=== PATIENT | female | born 1980 | race Caucasian/White ===

== ENCOUNTER 2017-02-04 12:10 | Emergency (ER) | payer OTHER ==
[2017-02-04 12:31] VITALS: BP 122/61; PULSE 95; RESP 18; TEMP 99
--- NOTE | 2017-02-04 12:43 | ED ---
General Adult HPI - General Chief complaint: ENT Stated complaint: Sore Throat Time Seen by Provider: 02/04/17 12:32 Source: patient, RN notes reviewed Mode of arrival: ambulatory Limitations: no limitations - History of Present Illness Initial comments: patient's a 36-year-old female who presents emergency room today with a chief complaint of sore throat 3 days. She does admit to positive exudate. Admits to congestion and headache. Patient denies any recent shortness of breath, chest pain, back pain, abdominal pain, nausea or vomiting, numbness or tingling , headaches or visual changes, or any other complaints. - Related Data Home Medications Medication Instructions Recorded Confirmed Enoxaparin [Lovenox] 40 mg SQ DAILY 02/12/15 04/30/15 Sertraline [Zoloft] 50 mg PO DAILY 02/12/15 04/30/15 Ferrous Sulfate [Feosol] 325 mg PO DAILY 04/30/15 04/30/15 Previous Rx's Medication Instructions Recorded Pnv,Calcium 72/Iron/Folic Acid 1 each PO DAILY #30 tablet 10/29/14 [ Plus Tablet] Azithromycin [Zithromax Z-pack] 0 mg PO DIRECTED #6 tab 05/01/15 Azithromycin [Zithromax Z-pack] 0 mg PO DIRECTED #6 tab 02/04/17 Ibuprofen [Motrin] 600 mg PO Q6HR PRN #30 day 02/04/17 Allergies Allergy/AdvReac Type Severity Reaction Status Date / Time Penicillins Allergy Nausea & Verified 02/04/17 12:31 Vomiting & Diarrhea cephalexin monohydrate AdvReac Nausea & Verified 02/04/17 12:31 [From Keflex] Vomiting Review of Systems ROS Statement: Those systems with pertinent positive or pertinent negative responses have been documented in the HPI. ROS Other: All systems not noted in ROS Statement are negative. Past Medical History Past Medical History: CVA/TIA, Myocardial Infarction ([place]) Additional Past Medical History / Comment(s): pt states silent mi at 27 years History of Any Multi-Drug Resistant Organisms: None Reported Past Surgical History: No Surgical Hx Reported Additional Past Surgical History / Comment(s): LEEP procedure Past Psychological History: No Psychological Hx Reported, Anxiety, Bipolar, Depression Smoking Status: Current every day smoker Past Alcohol Use History: None Reported Past Drug Use History: None Reported General Exam - General Exam Comments Initial Comments: General: The patient is awake and alert, in no distress, and does not appear acutely ill. Eye: Pupils are equal, round and reactive to light, extra-ocular movements are intact. No nystagmus. There is normal conjunctiva bilaterally. No signs of icterus. Ears, nose, mouth and throat: There are moist mucous membranes and no oral lesions. tonsils 2+. Positive exudate. Uvula midline. Patient swallows without any difficulty. Neck: The neck is supple, there is no tenderness or JVD. Cardiovascular: There is a regular rate and rhythm. No murmur, rub or gallop is appreciated. Respiratory: Lungs are clear to auscultation, respirations are non-labored, breath sounds are equal. No wheezes, stridor, rales, or rhonchi. Musculoskeletal: Normal ROM, no tenderness. Strength 5/5. Sensation intact. Pulses equal bilaterally 2+. Neurological: A&O x 3. CN II-XII intact, There are no obvious motor or sensory deficits. Coordination appears grossly intact. Speech is normal. Skin: Skin is warm and dry and no rashes or lesions are noted. Psychiatric: Cooperative, appropriate mood & affect, normal judgment. Limitations: no limitations Course Vital Signs 02/04/17 12:28 Temperature 99.0 F Pulse Rate 95 Respiratory 18 Rate Blood Pressure 122/61 O2 Sat by Pulse 99 Oximetry Medical Decision Making - Medical Decision Making patient was given antibiotics azithromycin due to penicillin ALLERGY. Patient will be given a prescription for ibuprofen rashes present for pain. Disposition Clinical Impression: Acute pharyngitis Disposition: HOME SELF-CARE Condition: Good Instructions: Strep Throat (ED) Additional Instructions: Please use medication as discussed. Please follow-up with family doctor in the next 2 days of symptoms have not improved. Please return to emergency room if the symptoms increase or worsen or for any other concerns. Prescriptions: Azithromycin [Zithromax Z-pack] 0 mg PO DIRECTED #6 tab Ibuprofen [Motrin] 600 mg PO Q6HR PRN #30 day PRN Reason: Pain Referrals: None,Stated [Primary Care Provider] - 1-2 days Time of Disposition: 12:43
== END 2017-02-04 13:00 | disposition home or self-care (01) ==
LOC: EC 12:10
DX: J02.9 Acute pharyngitis, unspecified (principal); F17.200 Nicotine dependence, unspecified, uncomplicated; Z86.73 Personal history of transient ischemic attack (TIA), and cerebral infarction without residual deficits; Z88.0 Allergy status to penicillin; Z88.1 Allergy status to other antibiotic agents; Z79.899 Other long term (current) drug therapy
CPT/HCPCS: 99282

== ENCOUNTER 2017-06-12 16:58 | Emergency (ER) | payer OTHER ==
[2017-06-12 17:26] VITALS: BP 127/79; PULSE 80; RESP 18; TEMP 98.5
--- NOTE | 2017-06-12 18:03 | ED ---
Abdominal Pain HPI - General Chief Complaint: Abdominal Pain Stated Complaint: 13 wks preg-spotting Time Seen by Provider: 06/12/17 17:39 Source: patient, RN notes reviewed Mode of arrival: ambulatory Limitations: no limitations - History of Present Illness Initial Comments: this a 36-year-old female presents emergency Department chief complaint abdominal pain. Patient states that she dislodged that she is . Patient states that she noticed some spotting last few dayscramping today. Patient is she 11 . 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 Patient states that she's had 2 miscarriages 2 stillbirths. Patient is not sure how far along she has she states that she has irregular periods and she was told by her significant other that he had a vasectomy. Patient denies any nausea vomiting diarrhea constipation no fevers no chills. Denies any vaginal discharge. - Related Data Previous Rx's Medication Instructions Recorded Doxycycline Monohydrate [Monodox] 100 mg PO Q12HR #14 cap 06/12/17 Allergies Allergy/AdvReac Type Severity Reaction Status Date / Time Penicillins Allergy Nausea & Verified 06/12/17 18:05 Vomiting & Diarrhea cephalexin monohydrate AdvReac Nausea & Verified 06/12/17 18:05 [From Keflex] Vomiting Review of Systems ROS Statement: Those systems with pertinent positive or pertinent negative responses have been documented in the HPI. ROS Other: All systems not noted in ROS Statement are negative. Past Medical History Past Medical History: CVA/TIA, Myocardial Infarction ([place]) Additional Past Medical History / Comment(s): pt states silent mi at 27 years History of Any Multi-Drug Resistant Organisms: None Reported Past Surgical History: No Surgical Hx Reported Additional Past Surgical History / Comment(s): LEEP procedure Past Psychological History: Anxiety, Bipolar, Depression Smoking Status: Current every day smoker Past Alcohol Use History: None Reported Past Drug Use History: None Reported General Exam Limitations: no limitations General appearance: alert, in no apparent distress Head exam: Present: atraumatic, normocephalic, normal inspection Respiratory exam: Present: normal lung sounds bilaterally. Absent: respiratory distress, wheezes, rales, rhonchi, stridor Cardiovascular Exam: Present: regular rate, normal rhythm, normal heart sounds. Absent: systolic murmur, diastolic murmur, rubs, gallop, clicks GI/Abdominal exam: Present: soft, normal bowel sounds. Absent: distended, tenderness, guarding, rebound, rigid Back exam: Absent: CVA tenderness (R), CVA tenderness (L) Skin exam: Present: warm, dry, intact, normal color. Absent: rash Course Vital Signs 06/12/17 17:23 Temperature 98.5 F Pulse Rate 80 Respiratory 18 Rate Blood Pressure 127/79 O2 Sat by Pulse 98 Oximetry Medical Decision Making - Medical Decision Making 36-year-old female presents emergency Department for abdominal cramping spotting early . Patient's ultrasound shows viable IUP 10 weeks. Patient andi positive blood type does not require broke him. Patient treated for urinary tract infection. 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 - Lab Data Result diagrams: 06/12/17 18:08 06/12/17 18:08 Lab Results 06/12/17 06/12/17 06/12/17 Range/Units 18:08 18:08 18:08 WBC 15.3 H (3.8-10.6) k/uL RBC 4.33 (3.80-5.40) m/uL Hgb 13.5 (11.4-16.0) gm/dL Hct 38.7 (34.0-46.0) % MCV 89.6 (80.0-100.0) fL MCH 31.2 (25.0-35.0) pg MCHC 34.8 (31.0-37.0) g/dL RDW 13.0 (11.5-15.5) % Plt Count 320 (150-450) k/uL Neutrophils % 68 % Lymphocytes % 25 % Monocytes % 4 % Eosinophils % 1 % Basophils % 0 % Neutrophils # 10.4 H (1.3-7.7) k/uL Lymphocytes # 3.8 (1.0-4.8) k/uL Monocytes # 0.6 (0-1.0) k/uL Eosinophils # 0.1 (0-0.7) k/uL Basophils # 0.0 (0-0.2) k/uL Sodium 139 (137-145) mmol/L Potassium 3.8 (3.5-5.1) mmol/L Chloride 102 (98-107) mmol/L Carbon Dioxide 25 (22-30) mmol/L Anion Gap 12 mmol/L BUN 6 L (7-17) mg/dL Creatinine 0.47 L (0.52-1.04) mg/dL Est GFR (CKD-EPI)AfAm >90 (>60 ml/min/1.73 sqM) Est GFR (CKD-EPI)NonAf >90 (>60 ml/min/1.73 sqM) Glucose 81 (74-99) mg/dL Calcium 9.5 (8.4-10.2) mg/dL Total Bilirubin 0.2 (0.2-1.3) mg/dL AST 14 (14-36) U/L ALT 16 (9-52) U/L Alkaline Phosphatase 49 (38-126) U/L Total Protein 6.9 (6.3-8.2) g/dL Albumin 4.1 (3.5-5.0) g/dL Urine Color Colorless Urine Appearance Cloudy H (Clear) Urine pH 6.5 (5.0-8.0) Ur Specific [place] 1.004 (1.001-1.035) Urine Protein Negative (Negative) Urine Glucose (UA) Negative (Negative) Urine Ketones Negative (Negative) Urine Blood Negative (Negative) Urine Nitrite Negative (Negative) Urine Bilirubin Negative (Negative) Urine Urobilinogen <2.0 (<2.0) mg/dL Ur Leukocyte Esterase Moderate H (Negative) Urine RBC 4 (0-5) /hpf Urine WBC 18 H (0-5) /hpf Ur Squamous Epith Cells 6 H (0-4) /hpf Urine Bacteria Rare H (None) /hpf Urine Mucus Rare H (None) /hpf Urine Sperm Rare (None) /hpf Blood Type Blood Type Recheck 06/12/17 Range/Units 18:08 WBC (3.8-10.6) k/uL RBC (3.80-5.40) m/uL Hgb (11.4-16.0) gm/dL Hct (34.0-46.0) % MCV (80.0-100.0) fL MCH (25.0-35.0) pg MCHC (31.0-37.0) g/dL RDW (11.5-15.5) % Plt Count (150-450) k/uL Neutrophils % % Lymphocytes % % Monocytes % % Eosinophils % % Basophils % % Neutrophils # (1.3-7.7) k/uL Lymphocytes # (1.0-4.8) k/uL Monocytes # (0-1.0) k/uL Eosinophils # (0-0.7) k/uL Basophils # (0-0.2) k/uL Sodium (137-145) mmol/L Potassium (3.5-5.1) mmol/L Chloride (98-107) mmol/L Carbon Dioxide (22-30) mmol/L Anion Gap mmol/L BUN (7-17) mg/dL Creatinine (0.52-1.04) mg/dL Est GFR (CKD-EPI)AfAm (>60 ml/min/1.73 sqM) Est GFR (CKD-EPI)NonAf (>60 ml/min/1.73 sqM) Glucose (74-99) mg/dL Calcium (8.4-10.2) mg/dL Total Bilirubin (0.2-1.3) mg/dL AST (14-36) U/L ALT (9-52) U/L Alkaline Phosphatase (38-126) U/L Total Protein (6.3-8.2) g/dL Albumin (3.5-5.0) g/dL Urine Color Urine Appearance (Clear) Urine pH (5.0-8.0) Ur Specific [place] (1.001-1.035) Urine Protein (Negative) Urine Glucose (UA) (Negative) Urine Ketones (Negative) Urine Blood (Negative) Urine Nitrite (Negative) Urine Bilirubin (Negative) Urine Urobilinogen (<2.0) mg/dL Ur Leukocyte Esterase (Negative) Urine RBC (0-5) /hpf Urine WBC (0-5) /hpf Ur Squamous Epith Cells (0-4) /hpf Urine Bacteria (None) /hpf Urine Mucus (None) /hpf Urine Sperm (None) /hpf Blood Type A Positive Blood Type Recheck No Disposition Clinical Impression: Abdominal pain in , UTI (urinary tract infection) Disposition: HOME SELF-CARE Condition: Stable Additional Instructions: Please return to the Emergency Department if symptoms worsen or any other concerns. Prescriptions: Doxycycline Monohydrate [Monodox] 100 mg PO Q12HR #14 cap Referrals: None,Stated [Primary Care Provider] - 1-2 days Rosa Olivo MD [REFERRING] - 1-2 days Time of Disposition: 19:05
[2017-06-12 18:21] LABS: Basophils % (A) 0 %; Eosinophils # (A) 0.1 k/uL (0-0.7); Eosinophils % (A) 1 %; HCT 38.7 % (34.0-46.0); HGB 13.5 gm/dL (11.4-16.0); Lymphocytes # (A) 3.8 k/uL (1.0-4.8); Lymphocytes % (A) 25 %; MCH 31.2 pg (25.0-35.0); MCHC 34.8 g/dL (31.0-37.0); MCV 89.6 fL (80.0-100.0); Mean Platelet Volume 6.4; Monocytes # (A) 0.6 k/uL (0-1.0); Monocytes % (A) 4 %; Neutrophils # (A) 10.4 k/uL (1.3-7.7); Neutrophils % (A) 68 %; Platelet Count 320 k/uL (150-450); RBC 4.33 m/uL (3.80-5.40); WBC 15.3 k/uL (3.8-10.6)
[2017-06-12 18:22] LABS: Appearance,Urine Cloudy (Clear); Bacteria,Urine Rare /hpf; Bilirubin,Urine Negative (Negative); Blood,Urine Negative (Negative); Color,Urine Colorless; Glucose,Urine (UA) Negative (Negative); Ketones,Urine Negative (Negative); Leukocyte Esterase,Urine Moderate (Negative); Mucus,Urine Rare /hpf; Nitrite,Urine Negative (Negative); PH, Urine 6.5 (5.0-8.0); Protein,Urine Negative (Negative); RBC,Urine 4 /hpf (0-5); Specific Gravity,Urine 1.004 (1.001-1.035); Sperm,Urine Rare /hpf; Squamous Epithelial Cell,Urine 6 /hpf (0-4); Urobilinogen,Urine <2.0 mg/dL (<2.0); WBC,Urine 18 /hpf (0-5)
[2017-06-12 18:32] LABS: ALT 16 U/L (9-52); AST 14 U/L (14-36); Albumin 4.1 g/dL (3.5-5.0); Alkaline Phosphatase 49 U/L (38-126); Anion Gap 12 mmol/L; Blood Urea Nitrogen 6 mg/dL (7-17); Calcium 9.5 mg/dL (8.4-10.2); Carbon Dioxide 25 mmol/L (22-30); Chloride 102 mmol/L (98-107); Glucose 81 mg/dL (74-99); Potassium 3.8 mmol/L (3.5-5.1); Sodium 139 mmol/L (137-145); Total Bilirubin 0.2 mg/dL (0.2-1.3); Total Protein 6.9 g/dL (6.3-8.2)
--- NOTE | 2017-06-12 18:57 | US ---
EXAMINATION TYPE: Transabdominal DATE OF EXAM: 06/10/17 COMPARISON: NONE CLINICAL HISTORY: Pain. Spotting and pain EXAM PERFORMED: Transabdominal (TA) EXAM MEASUREMENTS: GESTATIONAL AGE / DATING Physician Established: (12 weeks/6 days) EDC: 12/19/2017 Dates by LMP: (12 weeks/6 days) EDC: 12/19/2017 Dates by First Scan: No previous this is first scan Dates by Current Scan for: (10 weeks/0 days) EDC: 01/08/2018 MATERNAL ANATOMY Uterus: 12.1 x 7.5 x 8.7 cm Right Ovary: 2.3 x 2.3 x 2.1 cm Left Ovary: 2.7 x 1.5 x 1.8 cm Post CDS / Adnexa: wnl Presence of free fluid: no Presence of corpus luteal cyst: yes Presence of subchorionic bleed: no GESTATION / SURVEY CRL: 3.1cm (10 weeks/0 days) MSD: 4.4cm (9 weeks/6 days) Yolk Sac (normal less than 6mm): 3mm Heart Rate: 163 bpm Rhythm: Normal IUP: Viable IUP Beta HcG (if available): Not available at this time Viable IUP 10 wks 0days FRANKLIN 01/08/2018 HR 163 BPM IMPRESSION: Single intrauterine gestation estimated at 10 weeks 0 days gestation based on a crown-rump length. Ca rdiac activity measures 163 bpm.
== END 2017-06-12 19:19 | disposition home or self-care (01) ==
LOC: EC 16:58
DX: O23.41 Unspecified infection of urinary tract in pregnancy, first trimester (principal); O26.891 Other specified pregnancy related conditions, first trimester; R10.9 Unspecified abdominal pain; O99.331 Smoking (tobacco) complicating pregnancy, first trimester; F17.200 Nicotine dependence, unspecified, uncomplicated; Z3A.10 10 weeks gestation of pregnancy; Z88.0 Allergy status to penicillin; Z88.1 Allergy status to other antibiotic agents
CPT/HCPCS: 36415; 76801; 80053; 81001; 84702; 85025; 86900; 86901; 87086; 99284

== ENCOUNTER 2017-12-23 17:23 | Outpatient (CLI) | payer OTHER ==
[2017-12-23 18:35] VITALS: BP 116/71; PULSE 88; RESP 16; TEMP 98.4
--- NOTE | 2018-01-09 08:46 | P.MSEPDOC ---
Presenting Problems - Arrival Data Date of Arrival on Unit: 12/23/17 Time of Arrival on Unit: 17:23 Mode of Transport: Ambulatory - Complaint OB-Reason for Admission/Chief Complaint: Possible Onset of Labor Comment: Rectal/vaginal pressure and irregular contrations since this morning Medical History - Information : 11 Para: 6 Term: 5 : 1 Abortions: Spontaneous or Elective: 4 Number of Living Children: 6 - Gestational Age Gestational Age by FRANKLIN (wks/days): 38 Weeks and 1 Days - History Comment: limited care, hasn't see Dr. Olivo since 09/22/2017 Review of Systems - Review of Systems Constitutional: No problems Breast: No problems ENT: No problems Cardiovascular: No problems Respiratory: No problems Gastrointestinal: No problems Genitourinary: No problems Musculoskeletal: No problems Neurological: No problems Skin: No problems Vital Signs - Temperature Temperature: 98.4 F Temperature Source: Oral - Pulse Right Sitting Brachial Pulse Rate: 88 Pulse Assessment Method: Automatic Cuff - Respirations Respiratory Rate: 16 Oxygen Delivery Method: Room Air O2 Sat by Pulse Oximetry: 97 - Blood Pressure Right Arm Sitting Blood Pressure: 116/71 Blood Pressure Mean: 86 Blood Pressure Source: Automatic Cuff Medical Screen Scoring (Pre) - Cervical Exam Dilation: 1-3 cm = 1 Membranes: Intact - Uterine Contractions Frequency: N/A Duration: N/A Intensity: N/A - Maternal Vital Signs Maternal Temperature: N/A Maternal Blood Pressure: N/A Signs of Preeclampsia: N/A Maternal Respirations: N/A - Maternal Trauma Maternal Trauma: N/A - Assessment Baseline FHR: 140 Heart Rate - NICHD Category: Category I (Normal) = 0 NST: Reactive Position: N/A Station: N/A - Total Score Total Score (Pre): 1 - Level of Risk Level of Risk: Low (0-5) Physician Notification (Pre) - Physician Notified Physician Notified Date: 12/23/17 Physician Notified Time: 18:00 Physician/Practitioner Notifed:: Greg Spoke With: Greg New Order Received: Yes - Notification Comment Comment: Spk c\Dr. Garza, advsd , limited care with Dr. Olivo, irregular contractions and vaginal/rectal pressure, SVE 2/thick/high firm and posterior cervix. States reactive NST and may be d/c home. I agree with the RN Medical Screening Exam: Yes Risk & Benefit of care provided described in d/c instruction: Yes Diagnosis: FALSE LABOR AT OR AFTER 37 COMPLETED WEEKS OF GESTATION
== END 2017-12-23 18:40 | disposition home or self-care (01) ==
LOC: FBPOP 17:23
PROVIDERS: ATTEND Obstetrics & Gynecology
DX: O47.1 False labor at or after 37 completed weeks of gestation (principal); Z3A.38 38 weeks gestation of pregnancy
CPT/HCPCS: 59025; G0463; 99213

== ENCOUNTER 2018-01-20 12:34 | Emergency (ER) | payer OTHER ==
[2018-01-20] MEDS ORDERED: LIDOCAINE 1% INJ 10MG/ML (20 ML MDV) SQ STA (14:37)
[2018-01-20] MEDS ORDERED: DIPH,PERTUS(ACELL)TETVAC-LF 0.5 ML VIAL IM ONE (14:38)
--- NOTE | 2018-01-20 15:29 | ED ---
General Adult HPI - General Chief complaint: Wound/Laceration Stated complaint: thumb lac Source: patient, RN notes reviewed, old records reviewed Mode of arrival: ambulatory Limitations: no limitations - History of Present Illness Initial comments: 37-year-old female patient presents to ED after sustaining a laceration on the pad of her left thumb. Patient was opening a can of soup, and cut her thumb on the sharp exposed top. Patient has an approximately 2 cm laceration on her thumb. Patient denies any other injuries, denies any other trauma. Patient does not know status of her last tetanus immunization. Patient has no other complaints. Systemic: Pt denies fatigue, myalgia, fever/chills, rash. Pt denies weakness, night sweats, weight loss. Neuro: Pt denies headache, visual disturbances, syncope or pre-syncope. HEENT: Pt denies ocular discharge or irritation, otalgia, rhinorrhea, pharyngitis or notable lymphadenopathy. Cardiopulmonary: Pt denies chest pain, SOB, heart palpitations, dyspnea on exertion. Abdominal/GI: Pt denies abdominal pain, n/v/d. : Pt denies dysuria, burning w/ urination, frequency/urgency. Denies new onset urinary or bowel incontinence. MSK: Pt denies myalgia, loss of strength or function in extremities. - Related Data Home Medications Medication Instructions Recorded Confirmed No Known Home Medications 12/23/17 12/23/17 Allergies Allergy/AdvReac Type Severity Reaction Status Date / Time Penicillins Allergy Nausea & Verified 01/20/18 12:44 Vomiting & Diarrhea cephalexin monohydrate AdvReac Nausea & Verified 01/20/18 12:44 [From Keflex] Vomiting Review of Systems ROS Statement: Those systems with pertinent positive or pertinent negative responses have been documented in the HPI. ROS Other: All systems not noted in ROS Statement are negative. Past Medical History Past Medical History: CVA/TIA, Myocardial Infarction ([place]) Additional Past Medical History / Comment(s): pt states silent mi at 27 years History of Any Multi-Drug Resistant Organisms: None Reported Past Surgical History: No Surgical Hx Reported Additional Past Surgical History / Comment(s): LEEP procedure Past Psychological History: Anxiety, Bipolar, Depression Smoking Status: Current every day smoker Past Alcohol Use History: None Reported Past Drug Use History: None Reported General Exam - General Exam Comments Initial Comments: Constitutional: NAD, AOX3, Pt has pleasant affect. HEENT: NC/AT, trachea midline, neck supple, no lymphadenopathy. Posterior pharynx non erythematous, without exudates. External ears appear normal, without discharge. Mucous membranes moist. Eyes PERRLA, EOM intact. There is no scleral icterus. No pallor noted. Cardiopulmonary: RRR, no murmurs, rubs or gallops, no JVD noted. Lungs CTAB in anterior and posterior medina. No peripheral edema. Abdominal exam: Abdomen soft and non-distended. Abdomen non-tender to palpation in all 4 quadrants. Bowel sounds active in LLQ. No hepatosplenomegaly. Neuro: CN II-XII grossly intact. MSK: Patient has full active range of motion of upper and lower extremities. She has full active range of motion of left hand, all digits. Left hand neurovascularly intact. Approximately 2 cm laceration pallor of left thumb. No foreign bodies noted. Wound explored. Capillary refill less than 2 seconds, radial pulse +2 bilaterally. Wound closed with 3 simple interrupted sutures. Patient neurovascularly intact after suture placement. Limitations: no limitations Course Vital Signs 01/20/18 12:42 Temperature 98.1 F Pulse Rate 74 Respiratory 20 Rate Blood Pressure 126/82 O2 Sat by Pulse 99 Oximetry Procedures - Laceration Laceration #1 Consent Obtained: verbal consent Time Out Performed: Yes Indication: laceration Site: hand Size (cm): 2 Description: linear Depth: simple, single layer Anesthetic Used: lidocaine 1% Anesthesia Technique: local infiltration Amount (mls): 2 Pre-repair: wound explored Type of Sutures: other (ethylon) Size of Sutures: 5-0 Number of Sutures: 3 Medical Decision Making - Medical Decision Making 37 old female patient presents to ED with laceration of pad of left thumb from top of soup can. Patient sustained no other injury. Patient tetanus immunization updated today. Wound explored no foreign bodies noted. Wound approximated with 3 simple interrupted sutures. Patient neurovascularly intact before and after suture placement. Discussed suture care with patient, patient had sutures removed in 10 days from primary care provider. Patient to return to ED if any new signs or symptoms develop including, fever chills, nausea vomiting diarrhea, shortness of breath or any other new symptoms. Case discussed with Dr. Sampson. Disposition Clinical Impression: Laceration Disposition: HOME SELF-CARE Condition: Good Instructions: Laceration (ED) Additional Instructions: Patient to adhere to previously discussed treatment plan as directed. Patient to follow up with PCP in 1-2 days. Patient to return to ED if symptoms do not improve. Is patient prescribed a controlled substance at d/c from ED?: No Referrals: None,Stated [Primary Care Provider] - 1-2 days
[2018-01-20 15:49] VITALS: BP 114/62; PULSE 62; RESP 18; TEMP 97.1
== END 2018-01-20 15:45 | disposition home or self-care (01) ==
LOC: EC 12:34
DX: S61.012A Laceration without foreign body of left thumb without damage to nail, initial encounter (principal); F17.200 Nicotine dependence, unspecified, uncomplicated; Z88.0 Allergy status to penicillin; Z88.1 Allergy status to other antibiotic agents; Z23 Encounter for immunization; W45.8XXA Other foreign body or object entering through skin, initial encounter; Y93.89 Activity, other specified; Y92.009 Unspecified place in unspecified non-institutional (private) residence as the place of occurrence of the external cause
CPT/HCPCS: 90715; 99283; 90471; 12001; J2001

== ENCOUNTER 2018-08-29 11:20 | Emergency (ER) | payer OTHER ==
[2018-08-29] MEDS ORDERED: ACETAMINOPHEN TAB 500 MG TAB PO STA (13:14)
[2018-08-29] MEDS ORDERED: ALBUTEROL NEBULIZED 2.5 MG/3 ML INHALATION STA (13:14)
--- NOTE | 2018-08-29 14:21 | XR ---
EXAMINATION TYPE: XR chest 2V DATE OF EXAM: 08/29/2018 HISTORY: Pain. REFERENCE: Previous study dated 12/29/2015. FINDINGS: Heart size upper limits of normal. There is vascular congestion and subtle interstitial germania nge. Pleural spaces appear clear. IMPRESSION: CHANGES CONSISTENT WITH MILD CONGESTIVE HEART FAILURE.
--- NOTE | 2018-08-29 14:48 | ED ---
General Adult HPI - General Chief complaint: Upper Respiratory Infection Stated complaint: headache, SOB Time Seen by Provider: 08/29/18 12:51 Source: patient Mode of arrival: ambulatory Limitations: no limitations - History of Present Illness Initial comments: Patient is a 37-year-old female who presents with a chief complaint of cough and shortness of breath. She has a previous medical history of an CO in 2016 which she states was secondary to stress. Patient says that she has been coughing and having difficulty breathing. She is a smoker and is a history of asthma, she is currently 22 weeks . She denies any financing incident. There are no aggravating or alleviating factors. Timing is been constant. - Related Data Home Medications Medication Instructions Recorded Confirmed Cholecalciferol (Vitamin D3) 2,000 unit PO DAILY 08/29/18 08/29/18 [Vitamin D3] Multivitamins, Thera [Multivitamin 1 tab PO DAILY 08/29/18 08/29/18 (formulary)] Previous Rx's Medication Instructions Recorded Albuterol Inhaler [Ventolin Hfa 1 - 2 puff INHALATION RT-Q4H #1 08/29/18 Inhaler] inhaler Azithromycin [Zithromax Z-pack] 250 mg PO DIRECTED #6 tab 08/29/18 Cetirizine HCl [Zyrtec] 10 mg PO DAILY #30 tab 08/29/18 Allergies Allergy/AdvReac Type Severity Reaction Status Date / Time Penicillins Allergy Nausea & Verified 08/29/18 16:12 Vomiting & Diarrhea cephalexin monohydrate AdvReac Nausea & Verified 08/29/18 16:12 [From Keflex] Vomiting Review of Systems ROS Statement: Those systems with pertinent positive or pertinent negative responses have been documented in the HPI. ROS Other: All systems not noted in ROS Statement are negative. Constitutional: Denies: fever Respiratory: Reports: cough, dyspnea Cardiovascular: Denies: chest pain Past Medical History Past Medical History: CVA/TIA, Myocardial Infarction ([place]) Additional Past Medical History / Comment(s): pt states silent mi at 27 years History of Any Multi-Drug Resistant Organisms: None Reported Past Surgical History: No Surgical Hx Reported Additional Past Surgical History / Comment(s): LEEP procedure Past Psychological History: Anxiety, Bipolar, Depression Smoking Status: Current every day smoker Past Alcohol Use History: None Reported Past Drug Use History: None Reported General Exam Limitations: no limitations General appearance: alert, in no apparent distress Head exam: Present: atraumatic, normocephalic Eye exam: Present: normal appearance ENT exam: Present: normal exam Neck exam: Present: normal inspection Respiratory exam: Present: decreased breath sounds, other (bronchospastic cough on exam). Absent: respiratory distress, wheezes Cardiovascular Exam: Present: regular rate, normal rhythm GI/Abdominal exam: Present: soft. Absent: distended, tenderness Rectal exam: Present: deferred Extremities exam: Present: normal inspection Back exam: Present: normal inspection Neurological exam: Present: alert, oriented X3 Psychiatric exam: Present: normal affect, normal mood Skin exam: Present: warm, dry, intact Course Vital Signs 08/29/18 08/29/18 08/29/18 11:31 13:25 13:31 Temperature 98.4 F Pulse Rate 98 92 88 Respiratory 18 Rate Blood Pressure 124/73 O2 Sat by Pulse 96 Oximetry Medical Decision Making - Medical Decision Making Patient presents with chief complaint of cough and shortness of breath. On i nitial evaluation, vitals are stable, patient is in no acute distress. Patient was evaluated with chest x-ray and was given a breathing treatment. Chest x-ray was reviewed and shows findings of congestive heart failure. Further review of the patient's chart shows that she had an CO in 2016. I discussed the results with the patient at this time, I recommended further testing to evaluate cardiac enzymes and basic labs. Clinically, patient does not appear to be fluid overloaded and states she is feeling better after breathing treatments. She is agreeable to further evaluation EKG performed at 1447 shows normal sinus rhythm with a rate of 91 bpm, segs are within normal limits, no acute ischemic changes. 4:55 PM Lab evaluation of this patient is unremarkable. At this time, patient is stable for discharge. She'll be treated with azithromycin, albuterol inhaler, and Zyrtec. She was instructed to follow up with primary care 1-2 days, return to ED if symptoms worsen or change. - Lab Data Result diagrams: 08/29/18 15:00 08/29/18 15:00 Lab Results 08/29/18 08/29/18 08/29/18 Range/Units 15:00 15:00 15:00 WBC 12.9 H (3.8-10.6) k/uL RBC 3.44 L (3.80-5.40) m/uL Hgb 10.8 L (11.4-16.0) gm/dL Hct 30.8 L (34.0-46.0) % MCV 89.6 (80.0-100.0) fL MCH 31.4 (25.0-35.0) pg MCHC 35.0 (31.0-37.0) g/dL RDW 15.4 (11.5-15.5) % Plt Count 340 (150-450) k/uL Neutrophils % 83 % Lymphocytes % 10 % Monocytes % 4 % Eosinophils % 0 % Basophils % 0 % Neutrophils # 10.7 H (1.3-7.7) k/uL Lymphocytes # 1.3 (1.0-4.8) k/uL Monocytes # 0.5 (0-1.0) k/uL Eosinophils # 0.1 (0-0.7) k/uL Basophils # 0.0 (0-0.2) k/uL Sodium 135 L (137-145) mmol/L Potassium 3.8 (3.5-5.1) mmol/L Chloride 107 (98-107) mmol/L Carbon Dioxide 21 L (22-30) mmol/L Anion Gap 7 mmol/L BUN 4 L (7-17) mg/dL Creatinine 0.41 L (0.52-1.04) mg/dL Est GFR (CKD-EPI)AfAm >90 (>60 ml/min/1.73 sqM) Est GFR (CKD-EPI)NonAf >90 (>60 ml/min/1.73 sqM) Glucose 87 (74-99) mg/dL Calcium 8.6 (8.4-10.2) mg/dL Troponin I (0.000-0.034) ng/mL NT-Pro-B Natriuret Pep 336 pg/mL Urine Opiates Screen (NotDetected) Ur Oxycodone Screen (NotDetected) Urine Methadone Screen (NotDetected) Ur Propoxyphene Screen (NotDetected) Ur Barbiturates Screen (NotDetected) U Tricyclic Antidepress (NotDetected) Ur Phencyclidine Scrn (NotDetected) Ur Amphetamines Screen (NotDetected) U Methamphetamines Scrn (NotDetected) U Benzodiazepines Scrn (NotDetected) Urine Cocaine Screen (NotDetected) U Marijuana (THC) Screen (NotDetected) 08/29/18 08/29/18 Range/Units 15:00 15:06 WBC (3.8-10.6) k/uL RBC (3.80-5.40) m/uL Hgb (11.4-16.0) gm/dL Hct (34.0-46.0) % MCV (80.0-100.0) fL MCH (25.0-35.0) pg MCHC (31.0-37.0) g/dL RDW (11.5-15.5) % Plt Count (150-450) k/uL Neutrophils % % Lymphocytes % % Monocytes % % Eosinophils % % Basophils % % Neutrophils # (1.3-7.7) k/uL Lymphocytes # (1.0-4.8) k/uL Monocytes # (0-1.0) k/uL Eosinophils # (0-0.7) k/uL Basophils # (0-0.2) k/uL Sodium (137-145) mmol/L Potassium (3.5-5.1) mmol/L Chloride (98-107) mmol/L Carbon Dioxide (22-30) mmol/L Anion Gap mmol/L BUN (7-17) mg/dL Creatinine (0.52-1.04) mg/dL Est GFR (CKD-EPI)AfAm (>60 ml/min/1.73 sqM) Est GFR (CKD-EPI)NonAf (>60 ml/min/1.73 sqM) Glucose (74-99) mg/dL Calcium (8.4-10.2) mg/dL Troponin I <0.012 (0.000-0.034) ng/mL NT-Pro-B Natriuret Pep pg/mL Urine Opiates Screen Not Detected (NotDetected) Ur Oxycodone Screen Not Detected (NotDetected) Urine Methadone Screen Not Detected (NotDetected) Ur Propoxyphene Screen Not Detected (NotDetected) Ur Barbiturates Screen Not Detected (NotDetected) U Tricyclic Antidepress Not Detected (NotDetected) Ur Phencyclidine Scrn Not Detected (NotDetected) Ur Amphetamines Screen Not Detected (NotDetected) U Methamphetamines Scrn Not Detected (NotDetected) U Benzodiazepines Scrn Not Detected (NotDetected) Urine Cocaine Screen Not Detected (NotDetected) U Marijuana (THC) Screen Detected H (NotDetected) Disposition Clinical Impression: Bronchitis, Disposition: HOME SELF-CARE Condition: Good Prescriptions: Albuterol Inhaler [Ventolin Hfa Inhaler] 1 - 2 puff INHALATION RT-Q4H #1 inhaler Cetirizine HCl [Zyrtec] 10 mg PO DAILY #30 tab Is patient prescribed a controlled substance at d/c from ED?: No Referrals: None,Stated [Primary Care Provider] - 1-2 days Clotilde Fam MD [STAFF PHYSICIAN] - 1-2 days
[2018-08-29 15:15] LABS: Basophils % (A) 0 %; Eosinophils # (A) 0.1 k/uL (0-0.7); Eosinophils % (A) 0 %; HCT 30.8 % (34.0-46.0); HGB 10.8 gm/dL (11.4-16.0); Lymphocytes # (A) 1.3 k/uL (1.0-4.8); Lymphocytes % (A) 10 %; MCH 31.4 pg (25.0-35.0); MCV 89.6 fL (80.0-100.0); Mean Platelet Volume 6.9; Monocytes # (A) 0.5 k/uL (0-1.0); Monocytes % (A) 4 %; Neutrophils # (A) 10.7 k/uL (1.3-7.7); Neutrophils % (A) 83 %; Platelet Count 340 k/uL (150-450); RBC 3.44 m/uL (3.80-5.40); RDW 15.4 % (11.5-15.5); WBC 12.9 k/uL (3.8-10.6)
[2018-08-29 15:17] LABS: African American GFR (CKD) >90 (>60 ml/min/1.73 sqM); Anion Gap 7 mmol/L; Blood Urea Nitrogen 4 mg/dL (7-17); Calcium 8.6 mg/dL (8.4-10.2); Carbon Dioxide 21 mmol/L (22-30); Chloride 107 mmol/L (98-107); Glucose 87 mg/dL (74-99); Potassium 3.8 mmol/L (3.5-5.1); Sodium 135 mmol/L (137-145)
[2018-08-29 15:23] LABS: Amphetamine Screen,Urine Not Detected (NotDetected); Barbiturate Screen,Urine Not Detected (NotDetected); Benzodiazepines Screen,Urine Not Detected (NotDetected); Cocaine Screen,Urine Not Detected (NotDetected); Methadone Screen, Urine Not Detected (NotDetected); Opiate Screen,Urine Not Detected (NotDetected); Oxycodone Screen, Urine Not Detected (NotDetected); Phencyclidine Screen,Urine Not Detected (NotDetected); Tricyclic Antidepressant,Urine Not Detected (NotDetected); Urn Cannabinoid Scrn Detected (NotDetected)
[2018-08-29 17:14] VITALS: BP 108/70; PULSE 89; RESP 16; TEMP 98.2
== END 2018-08-29 17:21 | disposition home or self-care (01) ==
LOC: EC 11:20
DX: O99.512 Diseases of the respiratory system complicating pregnancy, second trimester (principal); O26.892 Other specified pregnancy related conditions, second trimester; O99.332 Smoking (tobacco) complicating pregnancy, second trimester; J40 Bronchitis, not specified as acute or chronic; R51 Headache; F17.200 Nicotine dependence, unspecified, uncomplicated; Z3A.22 22 weeks gestation of pregnancy; Z88.0 Allergy status to penicillin; Z88.1 Allergy status to other antibiotic agents
CPT/HCPCS: 36415; 71046; 80048; 80306; 83880; 84484; 85025; 93005; 94640; 99285

== ENCOUNTER → 2018-10-30 | Outpatient (CLI) | payer OTHER ==
--- NOTE | 2018-10-31 13:11 | US ---
EXAMINATION TYPE: US OB anatomy transabd DATE OF EXAM: 10/30/2018 COMPARISON: NONE HISTORY: Z34.90 SUPERVISION OF NORMAL TECHNIQUE: Transabdominal (TA) EXAM MEASUREMENTS: GESTATIONAL AGE / DATING Physician Established: (31 weeks/2 days) EDC: 12/30/18 Dates by LMP: unknown Dates by First Scan: not available Dates by Current Scan for: (30 weeks/6 days) EDC: 01/02/19 SURVEY IUP: Single PLACENTA: Fundal/posterior PREVIA: No previa NICOL: 13.7 cm CERVICAL LENGTH (transabdominal: norm > 3.0cm): 3.5 cm BIOMETRY PRESENTATION: Vertex BPD: 7.8 cm 31 weeks / 1 days HC: 28.1 cm 30 weeks / 5 days AC: 26.5 cm 30 weeks / 4 days FL: 5.9 cm 30 weeks / 5 days ESTIMATED WEIGHT IN GRAMS: 1624 grams ESTIMATED WEIGHT IN LBS/OZ: 3 lbs. 9 oz. WEIGHT PERCENTAGE BASED ON ESTABLISHED DATE: 21 % HC/AC: 1.1 FL/AC: 22.3 HEART RATE: 123 bpm RHYTHM: Normal ANATOMY SEEN (within normal limits): Midline Falx Cavus Septi Pellucidi Four Chamber Heart Outflow tracts: LVOT Stomach Situs Diaphragm Kidneys (bilateral) Bladder Three Vessel Cord Longitudinal Spine Transverse Spine Legs (bilateral) ANATOMY NOT SEEN: due to shadowing from bone, increased size, crowding * Lateral Vent (< 1 cm) * Cisterna Magna (< 1.1 cm) * Nuchal Fold (< 0.6 cm) * Cerebellum (varies with age) Choroid Plexus (bilateral) RVOT Cord Insert Nose / Lips Arms (bilateral) MATERNAL WALL MEASUREMENT: 3.8 cm from skin to anterior uterine wall (if exam limited due to body norton bitus). IMPRESSION: 1. Single intrauterine gestation estimated at 30 weeks 6 days gestation based on the current ultrasou nd measurements. 2. Cardiac activity measures 123 bpm. 3. Estimated weight 1624 g. This is within the 21st percentile. 4. There is limitation on small parts evaluation due to the advanced age time of this israel donovan
== END | disposition home or self-care (01) ==
LOC: RADUSWWP 15:06
PROVIDERS: ATTEND Obstetrics & Gynecology
DX: Z34.93 Encounter for supervision of normal pregnancy, unspecified, third trimester (principal); Z3A.30 30 weeks gestation of pregnancy
CPT/HCPCS: 76811

== ENCOUNTER → 2018-12-09 | Outpatient (CLI) | payer OTHER ==
--- NOTE | 2018-12-09 15:55 | US ---
EXAMINATION TYPE: US OB >= 14 wk fetus DATE OF EXAM: 12/09/2018 COMPARISON: CLINICAL HISTORY: Z34.90 Encounter for supervision of normal pregnan Growth TECHNIQUE: Transabdominal (TA) GESTATIONAL AGE / DATING Physician Established: (37 weeks/0 days) EDC: 12/30/2018 Dates by Current Scan: (36 weeks/0 days) EDC: 01/06/2019 Beta HCG (if available): Not available at this time SURVEY IUP: Single PLACENTA: Posterior PREVIA: No Previa NICOL: 13.0 cm Normal CERVICAL LENGTH (transabdominal: norm > 3.0cm): 3.0 cm BIOMETRY PRESENTATION: Vertex BPD: 9.0 cm 36 weeks / 2 days HC: 32.2 cm 36 weeks / 2 days AC: 33.6 cm 37 weeks / 4 days FL: 7.0 cm 36 weeks / 0 days ESTIMATED WEIGHT IN GRAMS: 3060 grams ESTIMATED WEIGHT IN LBS/OZ: 6 lbs. 12 oz. WEIGHT PERCENTAGE BASED ON ESTABLISHED DATES: 53.3% HC/AC: 1.0 Normal FL/AC: 20.9 Normal HEART RATE: 141 bpm RHYTHM: Normal Single live IUP measuring 36 weeks 0 days IMPRESSION: Single live IUP measuring 36 weeks 0 days
== END | disposition home or self-care (01) ==
LOC: RADUSWWP 15:25
PROVIDERS: ATTEND Obstetrics & Gynecology
DX: Z34.93 Encounter for supervision of normal pregnancy, unspecified, third trimester (principal); Z3A.36 36 weeks gestation of pregnancy
CPT/HCPCS: 76805

== ENCOUNTER 2019-03-31 14:39 | Emergency (ER) | payer OTHER ==
[2019-03-31] MEDS ORDERED: SODIUM CHLORIDE 0.9% 1,000 ML IV STA (14:59)
[2019-03-31] MEDS ORDERED: ONDANSETRON 4 MG/2 ML VIAL IVP STA (14:59)
[2019-03-31 15:36] LABS: Basophils # (A) 0.1 k/uL (0-0.2); Basophils % (A) 1 %; Eosinophils # (A) 0.1 k/uL (0-0.7); Eosinophils % (A) 1 %; HCT 35.7 % (34.0-46.0); HGB 11.3 gm/dL (11.4-16.0); Lymphocytes # (A) 2.2 k/uL (1.0-4.8); Lymphocytes % (A) 21 %; MCH 28.5 pg (25.0-35.0); MCHC 31.7 g/dL (31.0-37.0); Mean Platelet Volume 6.7; Monocytes # (A) 0.5 k/uL (0-1.0); Monocytes % (A) 5 %; Neutrophils # (A) 7.3 k/uL (1.3-7.7); Neutrophils % (A) 70 %; Platelet Count 551 k/uL (150-450); RBC 3.96 m/uL (3.80-5.40); RDW 14.7 % (11.5-15.5); WBC 10.5 k/uL (3.8-10.6)
[2019-03-31 15:39] LABS: Appearance,Urine Clear (Clear); Bacteria,Urine Rare /hpf; Bilirubin,Urine Negative (Negative); Blood,Urine Moderate (Negative); Color,Urine Light Yellow; Glucose,Urine (UA) Negative (Negative); Ketones,Urine Negative (Negative); Leukocyte Esterase,Urine Negative (Negative); Mucus,Urine Rare /hpf; Nitrite,Urine Negative (Negative); PH, Urine 6.5 (5.0-8.0); Protein,Urine Negative (Negative); RBC,Urine <1 /hpf (0-5); Specific Gravity,Urine 1.005 (1.001-1.035); Squamous Epithelial Cell,Urine 1 /hpf (0-4); Urobilinogen,Urine <2.0 mg/dL (<2.0); WBC,Urine <1 /hpf (0-5)
[2019-03-31 15:53] LABS: ALT 11 U/L (4-34); AST 16 U/L (14-36); African American GFR (CKD) >90 (>60 ml/min/1.73 sqM); Albumin 3.5 g/dL (3.5-5.0); Alkaline Phosphatase 95 U/L (38-126); Amylase 32 U/L (30-110); Anion Gap 9 mmol/L; Blood Urea Nitrogen 4 mg/dL (7-17); Calcium 9.1 mg/dL (8.4-10.2); Carbon Dioxide 26 mmol/L (22-30); Chloride 106 mmol/L (98-107); Glucose 99 mg/dL (74-99); Non-African American GFR(CKD) >90 (>60 ml/min/1.73 sqM); Potassium 4.1 mmol/L (3.5-5.1); Sodium 141 mmol/L (137-145); Total Bilirubin 0.3 mg/dL (0.2-1.3); Total Protein 6.9 g/dL (6.3-8.2)
--- NOTE | 2019-03-31 17:17 | ED ---
Abdominal Pain HPI <Clotilde Mcgraw - Last Filed: 03/31/19 19:38> - General Source: patient Mode of arrival: ambulatory Limitations: no limitations <Laly Méndez - Last Filed: 04/01/19 06:19> - General Chief Complaint: Abdominal Pain Stated Complaint: abdominal pain Time Seen by Provider: 03/31/19 14:53 - History of Present Illness Initial Comments: 38-year-old female presents today for chief complaint of left upper quadrant abdominal pain and nausea 1 week. Patient states yesterday was and has had on-and-off vaginal bleeding for the past month. Patient denies any lower pelvic pain and states that she had given vaginally. Patient denies any fevers dysuria urgency frequency or hematuria. Patient denies any flank pain patient denies a chest pain or shortness of breath doesn't appear deep inspiration. Patient states when the left upper quadrant abdominal pain which she described as dull aching with occasional sharp sensation she decided to presents to emergency department for further evaluation remaining review of systems negative upon arrival patient appears well there is no signs of acute distress vital signs WNL. (Laly Méndez) - Related Data Home Medications Medication Instructions Recorded Confirmed Cholecalciferol (Vitamin D3) 2,000 unit PO DAILY 08/29/18 08/29/18 [Vitamin D3] Multivitamins, Thera [Multivitamin 1 tab PO DAILY 08/29/18 08/29/18 (formulary)] Previous Rx's Medication Instructions Recorded Albuterol Inhaler [Ventolin Hfa 1 - 2 puff INHALATION RT-Q4H #1 08/29/18 Inhaler] inhaler Albuterol Nebulized [Ventolin 2.5 mg INHALATION Q4H #20 nebu 08/29/18 Nebulized] Azithromycin [Zithromax Z-pack] 250 mg PO DIRECTED #6 tab 08/29/18 Cetirizine HCl [Zyrtec] 10 mg PO DAILY #30 tab 08/29/18 Ibuprofen [Motrin] 600 mg PO Q8HR PRN #30 tab 03/31/19 Ondansetron [Zofran ODT] 4 mg PO Q8HR #10 tab 03/31/19 Polyethylene Glycol 3350 [Miralax] 17 gm PO DAILY 14 Days #527 gm 03/31/19 Allergies Allergy/AdvReac Type Severity Reaction Status Date / Time Penicillins Allergy Nausea & Verified 03/31/19 14:50 Vomiting & Diarrhea cephalexin monohydrate AdvReac Nausea & Verified 03/31/19 14:50 [From Keflex] Vomiting Review of Systems ROS Other: All systems not noted in ROS Statement are negative. <Clotilde Mcgraw - Last Filed: 03/31/19 19:38> ROS Other: All systems not noted in ROS Statement are negative. <Laly Méndez - Last Filed: 04/01/19 06:19> ROS Statement: Those systems with pertinent positive or pertinent negative responses have been documented in the HPI. Past Medical History Past Medical History: CVA/TIA, Myocardial Infarction ([place]) Additional Past Medical History / Comment(s): pt states silent mi at 27 years History of Any Multi-Drug Resistant Organisms: None Reported Past Surgical History: No Surgical Hx Reported Additional Past Surgical History / Comment(s): LEEP procedure Past Psychological History: Anxiety, Bipolar, Depression Smoking Status: Current every day smoker Past Alcohol Use History: None Reported Past Drug Use History: Marijuana <Laly Méndez - Last Filed: 04/01/19 06:19> General Exam Limitations: no limitations <Laly Méndez - Last Filed: 04/01/19 06:19> - General Exam Comments Initial Comments: General: The patient is awake and alert, in no distress, and does not appear acutely ill. Eye: Pupils are equal, round and reactive to light, extra-ocular movements are intact. No nystagmus. There is normal conjunctiva bilaterally. No signs of icterus. Ears, nose, mouth and throat: There are moist mucous membranes and no oral lesions. Neck: The neck is supple, there is no tenderness or JVD. Cardiovascular: There is a regular rate and rhythm. No murmur, rub or gallop is appreciated. Respiratory: Lungs are clear to auscultation, respirations are non-labored, breath sounds are equal. No wheezes, stridor, rales, or rhonchi. Gastrointestinal: Soft, non-distended, tenderness to palation of the LUQ of the abdomen without masses or organomegaly noted. There is no rebound or guarding present. Musculoskeletal: Normal ROM, no tenderness. Strength 5/5. Sensation intact. Radial pulses equal bilaterally 2+. Neurological: A&O x 3. CN II-XII intact grossly, There are no obvious motor or sensory deficits. Coordination appears grossly intact. Speech is normal. Skin: Skin is warm and dry and no rashes or lesions are noted. Psychiatric: Cooperative, appropriate mood & affect, normal judgment. (Laly Méndez) Course Vital Signs 03/31/19 03/31/19 14:48 17:50 Temperature 98.1 F 98.2 F Pulse Rate 88 72 Respiratory 20 18 Rate Blood Pressure 116/69 116/70 O2 Sat by Pulse 98 100 Oximetry Medical Decision Making - Lab Data Result diagrams: 03/31/19 15:14 03/31/19 15:14 <Clotilde Mcgraw - Last Filed: 03/31/19 19:38> - Lab Data Result diagrams: 03/31/19 15:14 03/31/19 15:14 <Laly Méndez - Last Filed: 04/01/19 06:19> - Medical Decision Making Patient is a 38-year-old female presenting with left upper quadrant pain as an intermittent for the last week. Vital signs are stable upon arrival. Patient is 3 months , vaginal delivery, no complications. Lab work shows no acute abnormalities, hemoglobin is stable from previous. Urine shows no signs of infection. Patient is not . CT of the abdomen shows jejunal wall thickening that could be related to gastroenteritis or inflammatory bowel disease. No other acute abnormalities seen. She was given fluids, pain control, Zofran. She reports improvement in her symptoms. I discussed these findings with the patient. Patient is stable for discharge. She'll be sent home with prescriptions for MiraLAX, Motrin, Zofran for her symptoms. Return parameters were discussed with the patient she verbalized understanding. She'll follow up with PCP or GI. Case discussed with Dr. Yepez. (Clotilde Mcgraw) - Lab Data Lab Results 03/31/19 03/31/19 03/31/19 Range/Units 15:14 15:14 15:14 WBC 10.5 (3.8-10.6) k/uL RBC 3.96 (3.80-5.40) m/uL Hgb 11.3 L (11.4-16.0) gm/dL Hct 35.7 (34.0-46.0) % MCV 90.0 (80.0-100.0) fL MCH 28.5 (25.0-35.0) pg MCHC 31.7 (31.0-37.0) g/dL RDW 14.7 (11.5-15.5) % Plt Count 551 H (150-450) k/uL Neutrophils % 70 % Lymphocytes % 21 % Monocytes % 5 % Eosinophils % 1 % Basophils % 1 % Neutrophils # 7.3 (1.3-7.7) k/uL Lymphocytes # 2.2 (1.0-4.8) k/uL Monocytes # 0.5 (0-1.0) k/uL Eosinophils # 0.1 (0-0.7) k/uL Basophils # 0.1 (0-0.2) k/uL Sodium 141 (137-145) mmol/L Potassium 4.1 (3.5-5.1) mmol/L Chloride 106 (98-107) mmol/L Carbon Dioxide 26 (22-30) mmol/L Anion Gap 9 mmol/L BUN 4 L (7-17) mg/dL Creatinine 0.57 (0.52-1.04) mg/dL Est GFR (CKD-EPI)AfAm >90 (>60 ml/min/1.73 sqM) Est GFR (CKD-EPI)NonAf >90 (>60 ml/min/1.73 sqM) Glucose 99 (74-99) mg/dL Calcium 9.1 (8.4-10.2) mg/dL Total Bilirubin 0.3 (0.2-1.3) mg/dL AST 16 (14-36) U/L ALT 11 (4-34) U/L Alkaline Phosphatase 95 (38-126) U/L Total Protein 6.9 (6.3-8.2) g/dL Albumin 3.5 (3.5-5.0) g/dL Amylase 32 (30-110) U/L Lipase 74 (23-300) U/L Urine Color Urine Appearance (Clear) Urine pH (5.0-8.0) Ur Specific Lester (1.001-1.035) Urine Protein (Negative) Urine Glucose (UA) (Negative) Urine Ketones (Negative) Urine Blood (Negative) Urine Nitrite (Negative) Urine Bilirubin (Negative) Urine Urobilinogen (<2.0) mg/dL Ur Leukocyte Esterase (Negative) Urine RBC (0-5) /hpf Urine WBC (0-5) /hpf Ur Squamous Epith Cells (0-4) /hpf Urine Bacteria (None) /hpf Urine Mucus (None) /hpf Urine HCG, Qual Not Detected (Not Detectd) 03/31/19 Range/Units 15:14 WBC (3.8-10.6) k/uL RBC (3.80-5.40) m/uL Hgb (11.4-16.0) gm/dL Hct (34.0-46.0) % MCV (80.0-100.0) fL MCH (25.0-35.0) pg MCHC (31.0-37.0) g/dL RDW (11.5-15.5) % Plt Count (150-450) k/uL Neutrophils % % Lymphocytes % % Monocytes % % Eosinophils % % Basophils % % Neutrophils # (1.3-7.7) k/uL Lymphocytes # (1.0-4.8) k/uL Monocytes # (0-1.0) k/uL Eosinophils # (0-0.7) k/uL Basophils # (0-0.2) k/uL Sodium (137-145) mmol/L Potassium (3.5-5.1) mmol/L Chloride (98-107) mmol/L Carbon Dioxide (22-30) mmol/L Anion Gap mmol/L BUN (7-17) mg/dL Creatinine (0.52-1.04) mg/dL Est GFR (CKD-EPI)AfAm (>60 ml/min/1.73 sqM) Est GFR (CKD-EPI)NonAf (>60 ml/min/1.73 sqM) Glucose (74-99) mg/dL Calcium (8.4-10.2) mg/dL Total Bilirubin (0.2-1.3) mg/dL AST (14-36) U/L ALT (4-34) U/L Alkaline Phosphatase (38-126) U/L Total Protein (6.3-8.2) g/dL Albumin (3.5-5.0) g/dL Amylase (30-110) U/L Lipase (23-300) U/L Urine Color Light Yellow Urine Appearance Clear (Clear) Urine pH 6.5 (5.0-8.0) Ur Specific Lester 1.005 (1.001-1.035) Urine Protein Negative (Negative) Urine Glucose (UA) Negative (Negative) Urine Ketones Negative (Negative) Urine Blood Moderate H (Negative) Urine Nitrite Negative (Negative) Urine Bilirubin Negative (Negative) Urine Urobilinogen <2.0 (<2.0) mg/dL Ur Leukocyte Esterase Negative (Negative) Urine RBC <1 (0-5) /hpf Urine WBC <1 (0-5) /hpf Ur Squamous Epith Cells 1 (0-4) /hpf Urine Bacteria Rare H (None) /hpf Urine Mucus Rare H (None) /hpf Urine HCG, Qual (Not Detectd) Disposition Is patient prescribed a controlled substance at d/c from ED?: No <Clotilde Mcgraw - Last Filed: 03/31/19 19:38> <Laly Méndez - Last Filed: 04/01/19 06:19> Clinical Impression: Abdominal pain, Gastroenteritis Disposition: HOME SELF-CARE Condition: Stable Instructions (If sedation given, give patient instructions): Abdominal Pain (ED) Additional Instructions: Please return to the Emergency Department if symptoms worsen or any other concerns. Take MiraLAX for constipation for 2 weeks. Take ibuprofen for pain. Use Zofran as needed for nausea. Follow-up with PCP or GI if symptoms persist. Prescriptions: Polyethylene Glycol 3350 [Miralax] 17 gm PO DAILY 14 Days #527 gm Ibuprofen [Motrin] 600 mg PO Q8HR PRN #30 tab PRN Reason: Pain Ondansetron [Zofran ODT] 4 mg PO Q8HR #10 tab Referrals: None,Stated [Primary Care Provider] - 1-2 days Alicja Trimble MD [STAFF PHYSICIAN] - 1-2 days
[2019-03-31] MEDS ORDERED: MORPHINE SULFATE 2 MG/ML SYRINGE IVP ONE (17:37)
--- NOTE | 2019-03-31 17:43 | CT ---
EXAMINATION TYPE: CT abdomen pelvis w con DATE OF EXAM: 03/31/2019 COMPARISON: None multiple axial sections were obtained from the diaphragm to the floor the pelvis wit h intravenous contrast. Lung bases are clear. There is no pleural effusion. Heart appears normal. There is no pericardial effusion. Liver spleen pancreas stomach appear normal. Bile ducts are not dilated. There is no adrenal mass. Kidneys show satisfactory contrast opacificatio n. There is no hydronephrosis. There is no retroperitoneal adenopathy. There is mild free fluid in th e cul-de-sac. Bladder distends smoothly. Uterus is anteverted. There is no sign of a pelvic mass. There are some distended loops of jejunum in the left upper quadrant with moderate wall thickening. T here is mild small bowel mesenteric edema. Lumbar vertebra have normal spacing and alignment. Posterior elements are intact. Bony pelvis is inta ct. There is no compression fracture. Bony pelvis is intact. IMPRESSION: Jejunal wall thickening with mesenteric edema. This could relate to inflammatory bowel disease or gas troenteritis. Mild free fluid in the cul-de-sac. Appendix not definitely seen. No sign of thickened a ppendix. No evidence of mechanical bowel obstruction. HISTORY: Left upper quadrant pain. CT DLP: 918.8 mGycm Automated exposure control for dose reduction was used. CONTRAST: Performed with IV Contrast, patient injected with 100 mL of Isovue 300.
[2019-03-31 17:54] VITALS: BP 116/70; PULSE 72; RESP 18; TEMP 98.2
== END 2019-03-31 18:12 | disposition home or self-care (01) ==
LOC: EC 14:39
DX: K52.9 Noninfective gastroenteritis and colitis, unspecified (principal); I25.2 Old myocardial infarction; F17.200 Nicotine dependence, unspecified, uncomplicated; Z88.0 Allergy status to penicillin; Z88.1 Allergy status to other antibiotic agents; Z86.73 Personal history of transient ischemic attack (TIA), and cerebral infarction without residual deficits
CPT/HCPCS: 36415; 80053; 82150; 83690; 85025; 81001; 81025; 74177; 99284; 96374; 96375; 96361; J2405; J2270; Q9967

== ENCOUNTER 2022-12-15 18:41 | Emergency (ER) | payer OTHER ==
[2022-12-15] MEDS ORDERED: SODIUM CHLORIDE 0.9% 1,000 ML IV ONE (19:37)
[2022-12-15 20:25] LABS: Basophils % (A) 0 %; Eosinophils # (A) 0.1 k/uL (0-0.7); Eosinophils % (A) 1 %; HCT 39.6 % (34.0-46.0); HGB 13.1 gm/dL (11.4-16.0); Lymphocytes # (A) 4.1 k/uL (1.0-4.8); Lymphocytes % (A) 31 %; MCH 30.6 pg (25.0-35.0); MCV 92.8 fL (80.0-100.0); Monocytes # (A) 0.6 k/uL (0-1.0); Monocytes % (A) 4 %; Neutrophils # (A) 8.2 k/uL (1.3-7.7); Neutrophils % (A) 62 %; Platelet Count 289 k/uL (150-450); RBC 4.26 m/uL (3.80-5.40); RDW 13.6 % (11.5-15.5); WBC 13.2 k/uL (3.8-10.6)
[2022-12-15 20:28] LABS: Appearance,Urine Clear (Clear); Bacteria,Urine Moderate /hpf; Bilirubin,Urine Negative (Negative); Blood,Urine Large (Negative); Color,Urine Colorless; Glucose,Urine (UA) Negative (Negative); Ketones,Urine Negative (Negative); Leukocyte Esterase,Urine Negative (Negative); Mucus,Urine Rare /hpf; Nitrite,Urine Negative (Negative); PH, Urine 5.5 (5.0-8.0); Protein,Urine Negative (Negative); RBC,Urine 2 /hpf (0-5); Specific Gravity,Urine 1.006 (1.001-1.035); Squamous Epithelial Cell,Urine <1 /hpf (0-4); Urobilinogen,Urine <2.0 mg/dL (<2.0); WBC,Urine 1 /hpf (0-5)
[2022-12-15 20:41] LABS: ALT 14 U/L (4-34); AST 19 U/L (14-36); African American GFR (CKD) >90 (>60 ml/min/1.73 sqM); Albumin 4.2 g/dL (3.5-5.0); Alkaline Phosphatase 58 U/L (38-126); Anion Gap 8 mmol/L; Blood Urea Nitrogen 11 mg/dL (7-17); Calcium 9.6 mg/dL (8.4-10.2); Carbon Dioxide 25 mmol/L (22-30); Chloride 103 mmol/L (98-107); Glucose 100 mg/dL (74-99); Non-African American GFR(CKD) >90 (>60 ml/min/1.73 sqM); Potassium 3.9 mmol/L (3.5-5.1); Sodium 136 mmol/L (137-145); Total Bilirubin 0.3 mg/dL (0.2-1.3); Total Protein 7.1 g/dL (6.3-8.2)
--- NOTE | 2022-12-15 20:45 | US ---
EXAMINATION TYPE: Transabdominal DATE OF EXAM: 12/15/2022 8:32 PM COMPARISON: NONE CLINICAL INDICATION: Female, 42 years old with history of Vaginal bleeding; Dark red blood spotting t jodee, mild cramping, [id number] EXAM PERFORMED: OBTA EXAM MEASUREMENTS: GESTATIONAL AGE / DATING Physician Established: Not yet established Dates by LMP: ( 9 weeks/3 days) EDC: 07/22/2023 Dates by First Scan: No previous this is first scan Dates by Current Scan for: (8 weeks/5 days) EDC: 07/22/2023 MATERNAL ANATOMY Uterus: 10.9 x 7.2 x 5.8cm Right Ovary: 2.6 x 1.8 x 1.5cm Left Ovary: 1.8 x 2.3 x 2.9cm Post CDS / Adnexa: wnl Presence of free fluid: no Presence of corpus luteal cyst: not seen Presence of subchorionic bleed: no GESTATION / SURVEY CRL: 1.9cm (8 weeks/5 days) MSD: slightly irregular in shape Yolk Sac (normal less than 6mm): 1mm Heart Rate: 167 bpm Rhythm: Normal IUP: Viable IUP Date of LMP: 10/10/2022 Beta HcG (if available): pending Single live intrauterine gestation is seen as gestational sac, yolk sac, and pole are present. No free fluid in the pelvis. Both ovaries are seen. No suspicious extraovarian adnexal mass is noted. IMPRESSION: Single live intrauterine gestation is confirmed, mean crown-rump length 1.9 cm correspond ing to 8 week 5 day old fetus.
--- NOTE | 2022-12-15 20:58 | ED ---
Female Urogenital HPI - General Chief complaint: Vaginal Bleeding Stated complaint: Vaginal Bleeding, 8 wks Time Seen by Provider: 12/15/22 19:36 Source: patient, RN notes reviewed Mode of arrival: ambulatory Limitations: no limitations - History of Present Illness Initial comments: 42-year-old female who is in ,A4 presents to the emergency department with a chief complaint of vaginal bleeding. Patient reports that she is approximately 8 weeks . Last menstrual period date 10/08/2022. She reports light bleeding earlier this morning. She reports that light percussion of bright red blood at presently 7:30 PM. She denies any injury or trauma. Denies dizziness, lightheadedness, feet fatigue, shortness of breath. 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 Last Menstrual Period: 10/10/22 - Related Data Home Medications Medication Instructions Recorded Confirmed Cholecalciferol (Vitamin D3) 2,000 unit PO DAILY 08/29/18 08/29/18 [Vitamin D3] Multivitamins, Thera [Multivitamin 1 tab PO DAILY 08/29/18 08/29/18 (formulary)] Previous Rx's Medication Instructions Recorded Albuterol Inhaler [Ventolin Hfa 1 - 2 puff INHALATION RT-Q4H #1 08/29/18 Inhaler] inhaler Albuterol Nebulized [Ventolin 2.5 mg INHALATION Q4H #20 nebu 08/29/18 Nebulized] Azithromycin [Zithromax Z-pack (6 250 mg PO DIRECTED #6 tab 08/29/18 tabs)] Cetirizine HCl [Zyrtec] 10 mg PO DAILY #30 tab 08/29/18 Ibuprofen [Motrin] 600 mg PO Q8HR PRN #30 tab 03/31/19 Ondansetron [Zofran ODT] 4 mg PO Q8HR #10 tab 03/31/19 polyethylene glycoL 3350 [Miralax] 17 gm PO DAILY 14 Days #527 gm 03/31/19 Allergies Allergy/AdvReac Type Severity Reaction Status Date / Time Penicillins Allergy Nausea & Verified 03/31/19 14:50 Vomiting & Diarrhea cephalexin monohydrate AdvReac Nausea & Verified 03/31/19 14:50 [From Keflex] Vomiting Review of Systems ROS Statement: Those systems with pertinent positive or pertinent negative responses have been documented in the HPI. ROS Other: All systems not noted in ROS Statement are negative. Past Medical History Past Medical History: CVA/TIA, Myocardial Infarction ([place]) Additional Past Medical History / Comment(s): pt states silent mi at 27 years History of Any Multi-Drug Resistant Organisms: None Reported Past Surgical History: No Surgical Hx Reported Additional Past Surgical History / Comment(s): LEEP procedure Past Psychological History: Anxiety, Bipolar, Depression Past Alcohol Use History: None Reported Past Drug Use History: Marijuana General Exam - General Exam Comments Initial Comments: General: Alert, in no acute distress Head: atraumatic normocephalic. Eyes PERRL, EOMI intact, mucous membranes moist Respiratory: Lungs clear to auscultation bilaterally Cardiovascular: Heart rate regular rate and rhythm Abdominal: Soft without guarding or rebound Extremities: Normal inspection with full range of motion and normal capillary refill Neuroogic: alert and oriented 3, CN II-XII intact, able to ambulate with steady gait Skin: warm dry and intact with normal color :external exam is without any rashes, lesions, erythema. Vaginal canal with t scants. Blood. Cervical os is visualized and is closed. There is no cervical motion tenderness for abnormal adnexal tenderness. Pelvic exam performed with Inez chavira RN present. Limitations: no limitations Course Vital Signs 12/15/22 12/15/22 19:04 21:33 Temperature 98.6 F 98.7 F Pulse Rate 79 70 Respiratory 16 18 Rate Blood Pressure 140/79 120/75 O2 Sat by Pulse 99 99 Oximetry Medical Decision Making - Medical Decision Making Was pt. sent in by a medical professional or institution (, PA, RADIOLOGICAL EQUIPMENT SPECIALIST, urgent care, hospital, or assisted...) When possible be specific @ -[No] Did you speak to anyone other than the patient for history (EMS, parent, family, police, friend...)? What history was obtained from this source @ -[No] Did you review nursing and triage notes (agree or disagree)? Why? @ -[I reviewed and agree with nursing and triage notes] Were old charts reviewed (outside hosp., previous admission, EMS record, old EKG, old radiological studies, urgent care reports/EKG's, assisted records)? Report findings @ -[No old charts were reviewed] Differential Diagnosis (chest pain, altered mental status, abdominal pain women, abdominal pain men, vaginal bleeding, weakness, fever, dyspnea, syncope, headache, dizziness, GI bleed, back pain, seizure, CVA, palpatations, mental health, musculoskeletal)? @ -[not applicable] EKG interpreted by me (3pts min.). @ -[As above] X-rays interpreted by me (1pt min.). @ -[None done] CT interpreted by me (1pt min.). @ -[None done] U/S interpreted by me (1pt. min.). @ -Yes, see below What testing was considered but not performed or refused? (CT, X-rays, U/S, labs)? Why? @ -[None] What meds were considered but not given or refused? Why? @ -[None] Did you discuss the management of the patient with other professionals (professionals i.e. , PA, RADIOLOGICAL EQUIPMENT SPECIALIST, lab, RT, psych nurse, oncology social worker, service dog trainer, teacher, penal officer, registered nurse hh case manager)? Give summary @ -[No] Was smoking cessation discussed for >3mins.? @ -[No] Was critical care preformed (if so, how long)? @ -[No] Were there social determinants of health that impacted care today? How? (Homelessness, low income, unemployed, alcoholism, drug addiction, transportation, low edu. Level, literacy, decrease access to med. care, alf, rehab)? @ -[No] Was there de-escalation of care discussed even if they declined (Discuss DNR or withdrawal of care, Hospice)? DNR status @ -[No] What co-morbidities impacted this encounter? (DM, HTN, Smoking, COPD, CAD, Cancer, CVA, ARF, Chemo, Hep., AIDS, mental health diagnosis, sleep apnea, morbid obesity)? @ -[None] Was patient admitted / discharged? Hospital course, mention meds given and route, prescriptions, significant lab abnormalities, going to OR and other pertinent info. @ -Discharge. 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 Patient had a thorough history and physical exam performed. Physical exam reveals scant bright red blood in the vaginal vault, cervical os is visualized and closed. No adnexal tenderness. Patient had laboratory studies which revealed WBC 13.2, hemoglobin 13.1 sodium 136, potassium 2.9 BUN 11, creatinine 0.63 hCG Quant 36,000 I interpreted the following pelvic ultrasound reveals single IUP. I discussed the results in detail with the patient verbalized understanding and all questions were addressed. The agreeable with the plan for discharge home with recommended close follow-up with HAND DEICER ELEMENT WINDER in 2-3 days. Patient provided prescription for serial beta hCG to be drawn in 48 hours. An precautions were discussed at length. Patient discharged in stable condition. Case discussed with, Dr. Yepez, P who agrees with plan of care Undiagnosed new problem with uncertain prognosis? @ -[No] Drug Therapy requiring intensive monitoring for toxicity (Heparin, Nitro, Insulin, Cardizem)? @ -[No] Were any procedures done? @ -[No] Diagnosis/symptom? @ -Vaginal Bleeding Vs. Miscarriage Acute, or Chronic, or Acute on Chronic? @ -Acute Uncomplicated (without systemic symptoms) or Complicated (systemic symptoms)? @ -Uncomplicated Side effects of treatment? @ -[No] Exacerbation, Progression, or Severe Exacerbation? @ -[No] Poses a threat to life or bodily function? How? (Chest pain, [place], [place], pneumonia, PE, COPD, DKA, ARF, appy, cholecystitis, CVA, Diverticulitis, Homicidal, Suicidal, threat to staff... and all critical care pts) @ -Low likelihood - Lab Data Result diagrams: 12/15/22 19:52 12/15/22 19:52 Lab Results 12/15/22 12/15/22 12/15/22 Range/Units 19:52 19:52 19:52 WBC 13.2 H (3.8-10.6) k/uL RBC 4.26 (3.80-5.40) m/uL Hgb 13.1 (11.4-16.0) gm/dL Hct 39.6 (34.0-46.0) % MCV 92.8 (80.0-100.0) fL MCH 30.6 (25.0-35.0) pg MCHC 33.0 (31.0-37.0) g/dL RDW 13.6 (11.5-15.5) % Plt Count 289 (150-450) k/uL MPV 7.0 Neutrophils % 62 % Lymphocytes % 31 % Monocytes % 4 % Eosinophils % 1 % Basophils % 0 % Neutrophils # 8.2 H (1.3-7.7) k/uL Lymphocytes # 4.1 (1.0-4.8) k/uL Monocytes # 0.6 (0-1.0) k/uL Eosinophils # 0.1 (0-0.7) k/uL Basophils # 0.0 (0-0.2) k/uL Sodium 136 L (137-145) mmol/L Potassium 3.9 (3.5-5.1) mmol/L Chloride 103 (98-107) mmol/L Carbon Dioxide 25 (22-30) mmol/L Anion Gap 8 mmol/L BUN 11 (7-17) mg/dL Creatinine 0.63 (0.52-1.04) mg/dL Est GFR (CKD-EPI)AfAm >90 (>60 ml/min/1.73 sqM) Est GFR (CKD-EPI)NonAf >90 (>60 ml/min/1.73 sqM) Glucose 100 H (74-99) mg/dL Calcium 9.6 (8.4-10.2) mg/dL Total Bilirubin 0.3 (0.2-1.3) mg/dL AST 19 (14-36) U/L ALT 14 (4-34) U/L Alkaline Phosphatase 58 (38-126) U/L Total Protein 7.1 (6.3-8.2) g/dL Albumin 4.2 (3.5-5.0) g/dL HCG, Quant 60933.2 mIU/mL Urine Color Colorless Urine Appearance Clear (Clear) Urine pH 5.5 (5.0-8.0) Ur Specific [place] 1.006 (1.001-1.035) Urine Protein Negative (Negative) Urine Glucose (UA) Negative (Negative) Urine Ketones Negative (Negative) Urine Blood Large H (Negative) Urine Nitrite Negative (Negative) Urine Bilirubin Negative (Negative) Urine Urobilinogen <2.0 (<2.0) mg/dL Ur Leukocyte Esterase Negative (Negative) Urine RBC 2 (0-5) /hpf Urine WBC 1 (0-5) /hpf Ur Squamous Epith Cells <1 (0-4) /hpf Urine Bacteria Moderate H (None) /hpf Urine Mucus Rare H (None) /hpf Disposition Clinical Impression: Vaginal bleeding Disposition: HOME SELF-CARE Condition: Stable Additional Instructions: Please follow up with your OB in 2-3 days Return to the emergency department if symptoms worsen or persist Is patient prescribed a controlled substance at d/c from ED?: No Referrals: None,Stated [Primary Care Provider] - 1-2 days Jesenia Navarrete DO [Doctor of Osteopathic Medicine] - 1-2 days Time of Disposition: 20:54
[2022-12-15 21:23] LABS: HCG,Quantitative Serum 36361.2 mIU/mL
[2022-12-15 21:47] VITALS: BP 120/75; PULSE 70; RESP 18; TEMP 98.7
== END 2022-12-15 21:38 | disposition home or self-care (01) ==
LOC: EC 18:41
DX: O20.9 Hemorrhage in early pregnancy, unspecified (principal); O99.411 Diseases of the circulatory system complicating pregnancy, first trimester; I25.2 Old myocardial infarction; O99.321 Drug use complicating pregnancy, first trimester; F12.90 Cannabis use, unspecified, uncomplicated; Z3A.08 8 weeks gestation of pregnancy; Z88.0 Allergy status to penicillin; Z88.1 Allergy status to other antibiotic agents; Z86.73 Personal history of transient ischemic attack (TIA), and cerebral infarction without residual deficits
CPT/HCPCS: 36415; 76801; 80053; 81001; 84702; 85025; 96360; 99284

== ENCOUNTER 2023-01-19 16:36 | Emergency (ER) | payer OTHER ==
[2023-01-19 16:46] VITALS: BP 124/70; RESP 18; TEMP 98.4
[2023-01-19 17:13] LABS: Appearance,Urine Clear (Clear); Basophils % (A) 0 %; Bilirubin,Urine Negative (Negative); Blood,Urine Trace (Negative); Color,Urine Colorless; Eosinophils # (A) 0.1 k/uL (0-0.7); Eosinophils % (A) 1 %; Glucose,Urine (UA) Negative (Negative); HCT 41.1 % (34.0-46.0); HGB 13.7 gm/dL (11.4-16.0); Ketones,Urine Negative (Negative); Leukocyte Esterase,Urine Negative (Negative); Lymphocytes # (A) 3.7 k/uL (1.0-4.8); Lymphocytes % (A) 29 %; MCH 30.5 pg (25.0-35.0); MCHC 33.4 g/dL (31.0-37.0); MCV 91.3 fL (80.0-100.0); Mean Platelet Volume 7.1; Monocytes # (A) 0.5 k/uL (0-1.0); Monocytes % (A) 4 %; Neutrophils % (A) 64 %; Nitrite,Urine Negative (Negative); Platelet Count 317 k/uL (150-450); Protein,Urine Negative (Negative); RBC,Urine <1 /hpf (0-5); RDW 13.6 % (11.5-15.5); Urobilinogen,Urine <2.0 mg/dL (<2.0); WBC 12.5 k/uL (3.8-10.6); WBC,Urine <1 /hpf (0-5)
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
[2023-01-19 17:33] LABS: ALT 15 U/L (4-34); AST 21 U/L (14-36); African American GFR (CKD) >90 (>60 ml/min/1.73 sqM); Albumin 4.2 g/dL (3.5-5.0); Alkaline Phosphatase 50 U/L (38-126); Anion Gap 10 mmol/L; Blood Urea Nitrogen 5 mg/dL (7-17); Calcium 9.7 mg/dL (8.4-10.2); Carbon Dioxide 23 mmol/L (22-30); Chloride 105 mmol/L (98-107); Glucose 133 mg/dL (74-99); Non-African American GFR(CKD) >90 (>60 ml/min/1.73 sqM); Potassium 3.6 mmol/L (3.5-5.1); Sodium 138 mmol/L (137-145); Total Bilirubin 0.4 mg/dL (0.2-1.3)
[2023-01-19 17:38] LABS: INR 0.9 (<1.2); Partial Thromboplastin Time 25.5 sec (22.0-30.0); Prothrombin Time 10.2 sec (10.0-12.5)
--- NOTE | 2023-01-19 18:55 | US ---
EXAMINATION TYPE: Transabdominal DATE OF EXAM: 01/19/2023 6:18 PM COMPARISON: US 12/15/2022 CLINICAL INDICATION: Female, 42 years old with history of pelvic pain; Pain. A5. EXAM PERFORMED: Transvaginal (TV) and Transabdominal (TA) EXAM MEASUREMENTS: GESTATIONAL AGE / DATING Physician Established: Not yet established. Dates by LMP: (14weeks/3 days) EDC: 07/17/2023 Dates by First Scan: (13weeks/5 days) EDC: 07/22/2023 Dates by Current Scan for: (10weeks/4 days) EDC: 08/13/2023 No heart tones seen at this time. MATERNAL ANATOMY Uterus: 11.4 x 6.8 x 6.1 cm. Very heterogeneous. Complex area seen in cervix: 1.3 x 0.9 x 0.4 Right Ovary: Not seen Left Ovary: Not seen Post CDS / Adnexa: Appear wnl Presence of free fluid: No Presence of corpus luteal cyst: not seen Presence of subchorionic bleed: No GESTATION / SURVEY CRL: 3.59 cm (10 weeks/4 days) Yolk Sac (normal less than 6mm): not seen Heart Rate: Unable to visualize IUP: pole seen, unable to visualize heart tones at this time. Questionable complex area seen posterior pole: 2.7 x 1.3 x 0.4 cm. Isoechoic, rounded area also seen within the gestational sac adjacent to pole: 0.9 x 0.9 x 0. 7 cm. l Date of LMP: 10/15/2022 Beta HcG (if available): 7.9 mIU/mL IMPRESSION: Intrauterine gestation with ultrasound age 10 weeks 4 days which is discordant with dates by last menstrual period and first scan by more than 3 weeks. Given lack of heart tones findin gs likely represent demise/failed . Complex material within the uterine could represen t sequela of demise.
[2023-01-19] MEDS ORDERED: ACETAMINOPHEN TAB 500 MG TAB PO STA (18:56)
[2023-01-19 19:47] VITALS: PULSE 108
== END 2023-01-19 19:29 | disposition home or self-care (01) ==
LOC: EC 16:36
DX: O03.9 Complete or unspecified spontaneous abortion without complication (principal); I25.2 Old myocardial infarction; F17.200 Nicotine dependence, unspecified, uncomplicated; F12.90 Cannabis use, unspecified, uncomplicated; Z88.0 Allergy status to penicillin; Z88.1 Allergy status to other antibiotic agents; Z86.73 Personal history of transient ischemic attack (TIA), and cerebral infarction without residual deficits
CPT/HCPCS: 36415; 76801; 76817; 80053; 81001; 84702; 85025; 85610; 85730; 86850; 86900; 86901; 99284

== ENCOUNTER 2023-01-23 15:34 | Day surgery (SDC) | payer OTHER ==
[2023-01-23] MEDS ORDERED: LACTATED RINGERS 1,000 ML IV ONE (16:06)
[2023-01-23] MEDS ORDERED: ONDANSETRON 4 MG/2 ML VIAL ONE (16:23)
[2023-01-23] MEDS ORDERED: DEXAMETHASONE SOD PHOSPHATE 4 MG/ML 1 ML VIAL IVP ONE (16:27)
[2023-01-23] MEDS ORDERED: ONDANSETRON 4 MG/2 ML VIAL IVP ONE (16:27)
[2023-01-23] MEDS ORDERED: MIDAZOLAM 2 MG/2 ML VIAL ONE (17:20)
[2023-01-23] MEDS ORDERED: LIDOCAINE 1% INJ 10MG/ML (20 ML MDV) ONE (17:20)
[2023-01-23] MEDS ORDERED: fentaNYL (PF) 50 MCG/ML 2 ML AMP ONE (17:20)
[2023-01-23] MEDS ORDERED: PROPOFOL 10 MG/ML 20 ML VIAL IV ONE (17:20)
--- NOTE | 2023-01-23 17:26 | P.HPOB ---
History of Present Illness H&P Date: 01/23/23 Chief Complaint: Missed This is a 42-year-old female 14 para 7 who presents for suction dilation and curettage due to missed . She was seen in the ER last weekend for spotting and bleeding for a few days. She had previously been to a care center and was found to have a viable fetus with heart rate prior to that time. In ER ultrasound showed a fetus measuring 10 weeks 4 days with no heart tones and some debris was noted within the sac. She should've measured 13 and half weeks based on her earlier ultrasound. Her blood type is A+. Her beta hCG level was 11,788. She has requested dilation and curettage. She also was counseled regarding expectant management. Obstetrical history: G4 to P7. History of 7 vaginal deliveries one of which was . She also had 5 miscarriages all of which were spontaneous between 5 and 7 weeks. Gynecologic history: She denies any history of sexually transmitted diseases. Social history: She is single. She has been with her boyfriend for approximately 2 years. She is unemployed. Review of Systems Constitutional: Denies chills, Denies fever Eyes: denies blurred vision, denies pain Ears, nose, mouth and throat: Denies headache, Denies sore throat Cardiovascular: Denies chest pain, Denies shortness of breath Respiratory: Denies cough Gastrointestinal: Denies abdominal pain, Denies diarrhea, Denies nausea, Denies vomiting Genitourinary: Reports abnormal vaginal bleeding, Reports pelvic pain, Reports Musculoskeletal: Denies myalgias Integumentary: Denies pruritus, Denies rash Neurological: Denies numbness, Denies weakness Psychiatric: Reports anxiety, Reports depression Past Medical History Past Medical History: CVA/TIA, Myocardial Infarction ([place]) Additional Past Medical History / Comment(s): pt states silent mi at 27 years History of Any Multi-Drug Resistant Organisms: None Reported Additional Past Surgical History / Comment(s): LEEP procedure Past Anesthesia/Blood Transfusion Reactions: No Reported Reaction Past Psychological History: Anxiety, Bipolar, Depression Smoking Status: Current every day smoker Past Alcohol Use History: None Reported Past Drug Use History: Marijuana Medications and Allergies Home Medications Medication Instructions Recorded Confirmed Type Albuterol Inhaler [Ventolin Hfa 1 - 2 puff INHALATION RT-Q4H #1 08/29/18 01/23/23 Rx Inhaler] inhaler Albuterol Nebulized [Ventolin 2.5 mg INHALATION Q4H #20 nebu 08/29/18 01/23/23 Rx Nebulized] Azithromycin [Zithromax Z-pack (6 250 mg PO DIRECTED #6 tab 08/29/18 01/23/23 Rx tabs)] Cetirizine HCl [Zyrtec] 10 mg PO DAILY #30 tab 08/29/18 01/23/23 Rx Cholecalciferol (Vitamin D3) 2,000 unit PO DAILY 08/29/18 01/23/23 History [Vitamin D3] Multivitamins, Thera [Multivitamin 1 tab PO DAILY 08/29/18 01/23/23 History (formulary)] Ibuprofen [Motrin] 600 mg PO Q8HR PRN #30 tab 03/31/19 01/23/23 Rx Ondansetron [Zofran ODT] 4 mg PO Q8HR #10 tab 03/31/19 01/23/23 Rx polyethylene glycoL 3350 [Miralax] 17 gm PO DAILY 14 Days #527 gm 03/31/19 01/23/23 Rx Allergies Allergy/AdvReac Type Severity Reaction Status Date / Time Penicillins Allergy Nausea & Verified 01/23/23 16:10 Vomiting & Diarrhea cephalexin monohydrate AdvReac Nausea & Verified 01/23/23 16:10 [From Keflex] Vomiting Exam Osteopathic Statement: *. No significant issues noted on an osteopathic structural exam other than those noted in the History and Physical/Consult. Vital Signs Temp Pulse Resp BP Pulse Ox 01/23/23 15:52 98.3 F 85 16 136/70 95 Intake and Output 01/23/23 01/23/23 01/23/23 06:59 14:59 22:59 Other: Weight 86.9 kg HEENT: Within normal limits Heart: Regular rate and rhythm Lungs: Clear to auscultation bilaterally Abdomen: Soft, nontender Pelvic exam: Uterus is slightly enlarged, with minimal tenderness and no adnexal masses. Scant bleeding was noted from the cervical os. Extremities: Negative Homans. Assessment and Plan Assessment: Missed Plan: Proceed with suction dilation and curettage. I have discussed the risks, benefits, and alternative therapies for the above- mentioned procedure and for both sedation/anesthesia as well as necessary blood products administration, if indicated, as they pertain to this patient. The patient has indicated her understanding and acceptance of the risks and procedures discussed.
--- NOTE | 2023-01-23 17:52 | P.OP ---
Date of Procedure: 01/23/23 Preoperative Diagnosis: Missed Postoperative Diagnosis: Same Procedure(s) Performed: Suction dilation and curettage Anesthesia: RICHARD Surgeon: Jyoti Fernandes Estimated Blood Loss (ml): 10 Pathology: other (Products of conception) Condition: stable Disposition: floor Indications for Procedure: This is a 42-year-old female 14 para 7 who presents for suction dilation and curettage due to missed . She was seen in the ER last weekend for spotting and bleeding for a few days. She had previously been to a care center and was found to have a viable fetus with heart rate prior to that time. In ER ultrasound showed a fetus measuring 10 weeks 4 days with no heart tones and some debris was noted within the sac. She should've measured 13 and half weeks based on her earlier ultrasound. Her blood type is A+. Her beta hCG level was 11,788. She has requested dilation and curettage. She also was counseled regarding expectant management. Operative Findings: Uterus is midposition, with no adnexal masses palpated. Uterus is sounded to 12 cm. A large amount of products of conception are obtained. Description of Procedure: The patient is taken to the operating room where she is placed in the dorsal lithotomy position. She is prepped and draped in the normal sterile fashion. Her bladder is drained with a catheter and then removed. Examination is performed under anesthesia. Uterus is found to be slightly enlarged with no adnexal masses palpated. A weighted speculum was placed in the patient's vagina. A right angle retractor is used to visualize the anterior lip of the cervix. This is grasped with a Allis clamp. Next the uterus is sounded to 12 cm. Cervix is gently dilated with Mcnamara dilators until an 11 mm suction curet could be placed. Suction curettage is performed with a large amount of tissue obtained. Next a medium-size sharp curet was gently introduced and sharp curettage was gently performed with no further tissue obtained. Suction curetting was performed one further time to remove any blood clot from the intrauterine cavity. Bleeding slowed considerably. Allis clamp was removed from the anterior lip of the cervix. No active bleeding is noted. All instruments are removed from the vagina. All sponge counts are correct. The patient is then taken to recovery room in stable condition.
[2023-01-23] MEDS ORDERED: KETOROLAC 15 MG/ML 1 ML VIAL IVP ONE (18:23)
[2023-01-23 18:26] VITALS: TEMP 97
[2023-01-23 18:49] VITALS: RESP 18
[2023-01-23 19:12] VITALS: BP 132/82; PULSE 67
== END 2023-01-23 19:10 | disposition home or self-care (01) ==
LOC: OR 15:34
PROVIDERS: ATTEND Obstetrics & Gynecology
DX: O02.1 Missed abortion (principal); F31.9 Bipolar disorder, unspecified; I25.2 Old myocardial infarction; F17.200 Nicotine dependence, unspecified, uncomplicated; F12.90 Cannabis use, unspecified, uncomplicated; F41.9 Anxiety disorder, unspecified; Z86.73 Personal history of transient ischemic attack (TIA), and cerebral infarction without residual deficits; Z88.0 Allergy status to penicillin; Z88.1 Allergy status to other antibiotic agents
CPT/HCPCS: 59820; 88305; J2250; J1100; J2405; J2001; J3010; J1885; J2704

== ENCOUNTER → 2023-01-23 | Outpatient (CLI) | payer OTHER ==
[2023-01-23 13:40] LABS: Basophils % (A) 0 %; Eosinophils # (A) 0.1 k/uL (0-0.7); Eosinophils % (A) 1 %; HCT 38.4 % (34.0-46.0); HGB 13.1 gm/dL (11.4-16.0); Lymphocytes # (A) 2.9 k/uL (1.0-4.8); Lymphocytes % (A) 26 %; MCH 31.3 pg (25.0-35.0); MCHC 34.2 g/dL (31.0-37.0); MCV 91.5 fL (80.0-100.0); Mean Platelet Volume 7.3; Monocytes # (A) 0.5 k/uL (0-1.0); Monocytes % (A) 4 %; Neutrophils # (A) 7.3 k/uL (1.3-7.7); Neutrophils % (A) 67 %; Platelet Count 292 k/uL (150-450); RDW 13.4 % (11.5-15.5)
== END | disposition home or self-care (01) ==
LOC: LABPAT 12:34
PROVIDERS: ATTEND Obstetrics & Gynecology
DX: Z01.812 Encounter for preprocedural laboratory examination (principal)
CPT/HCPCS: 36415; 85025; 86850; 86900; 86901

== ENCOUNTER 2024-08-06 13:40 | Outpatient (CLI) | payer OTHER ==
[2024-08-06 14:16] LABS: Appearance,Urine Clear (Clear); Bacteria,Urine Moderate /hpf; Bilirubin,Urine Negative (Negative); Blood,Urine Trace (Negative); Color,Urine Light Yellow; Glucose,Urine (UA) Negative (Negative); Ketones,Urine Negative (Negative); Leukocyte Esterase,Urine Negative (Negative); Mucus,Urine Rare /hpf; Nitrite,Urine Negative (Negative); PH, Urine 6.5 (5.0-8.0); Protein,Urine Negative (Negative); RBC,Urine 2 /hpf (0-5); Squamous Epithelial Cell,Urine 1 /hpf (0-4); Urobilinogen,Urine <2.0 mg/dL (<2.0); WBC,Urine <1 /hpf (0-5)
[2024-08-06 15:12] VITALS: BP 128/70; PULSE 92; RESP 18; TEMP 97.2
--- NOTE | 2024-08-28 15:03 | P.MSEPDOC ---
Presenting Problems - Arrival Data Date of Arrival on Unit: 08/06/24 Time of Arrival on Unit: 13:40 Mode of Transport: Ambulatory - Complaint OB-Reason for Admission/Chief Complaint: Pain Comment: Pt presents to triage complaining of LLQ pain that she has had for 2 days. Pt states pain comes and goes, rating it a 6/10. Pt states she has had sex in the past 24 hours. pt denies contractions. pt also complains of urinary burning. Medical History - Information : 14 Para: 8 Term: 7 : 1 Abortions: Spontaneous or Elective: 5 Number of Living Children: 7 - Gestational Age Gestational Age by FRANKLIN (wks/days): 24 Weeks and 2 Days - History Complications: No Care, Hx. Substance Abuse Comment: limited care at [facility], pt cigarette and marijuana smoker. Review of Systems - Review of Systems Constitutional: No problems Breast: No problems ENT: No problems Cardiovascular: No problems Respiratory: No problems Gastrointestinal: No problems Genitourinary: Dysuria Musculoskeletal: No problems Neurological: No problems Skin: No problems Vital Signs - Temperature Temperature: 97.2 F Temperature Source: Temporal Artery Scan - Pulse Right Pulse Rate: 92 - Respirations Respiratory Rate: 18 O2 Sat by Pulse Oximetry: 97 - Blood Pressure Right Arm Blood Pressure: 128/70 Blood Pressure Mean: 89 Blood Pressure Source: Automatic Cuff Medical Screen Scoring - Assessment - Baby A Baseline FHR: 155 Heart Rate - NICHD Category: Category I (Normal) Physician Notification - Physician Notified Physician Notified Date: 08/06/24 Physician Notified Time: 14:55 Physician: Yany Mendoza Order Received: Yes (d/c) Maternal Triage Index - Maternal Triage Index Presenting for scheduled procedure w/no complaint: No - Stat/Priority 1 Stat Priority 1: No - Urgent/Priority 2 Urgent Priority 2: No - Prompt/Priority 3 Prompt Priority 3: No - Non-Urgent/Priority 4 Non-Urgent Priority 4: Yes Criteria Met for Priority 4: pt presents with ligament pain. Disposition - Disposition OB Disposition: Discharge to home Discharge Date: 08/06/24 Discharge Time: 15:00 I agree with the RN Medical Screening Exam: Yes Physician's MSE Comment: I have neither seen nor examined the patient Case reviewed; plan agreed upon as documented in EMR&OBIX.: Yes Diagnosis: RELATED CONDITIONS, UNSPECIFIED, SECOND TRIMESTER
== END 2024-08-06 15:00 | disposition home or self-care (01) ==
LOC: FBPOP 13:40
PROVIDERS: ATTEND Obstetrics & Gynecology
DX: O26.892 Other specified pregnancy related conditions, second trimester (principal); O99.332 Smoking (tobacco) complicating pregnancy, second trimester; F17.200 Nicotine dependence, unspecified, uncomplicated; Z88.0 Allergy status to penicillin; Z88.1 Allergy status to other antibiotic agents; Z3A.24 24 weeks gestation of pregnancy
CPT/HCPCS: 81001; G0463; 99213

== ENCOUNTER → 2024-09-17 | Outpatient (CLI) | payer OTHER ==
--- NOTE | 2024-09-17 16:08 | US ---
EXAMINATION TYPE: US OB anatomy transabd DATE OF EXAM: 09/17/2024 COMPARISON: NONE CLINICAL INDICATION: Female, 43 years old with history of V23.7 O09.30 LATE CARE; Last scan at 8 weeks, Hx of Preeclampsia, and patient smokes TECHNIQUE: Transabdominal (TA) with grayscale imaging of single gestation. FINDINGS: EXAM MEASUREMENTS: GESTATIONAL AGE / DATING Physician Established: (30 weeks/2 days) EDC: 11/24/2024 Dates by LMP: ( weeks/ days) EDC: Dates by First Scan: ( weeks/ days) EDC: Dates by Current Scan for: (24 weeks/6 days) EDC: 01/01/2025 SURVEY IUP: Single PLACENTA: Posterior PREVIA: No previa NICOL: 10.8 cm Normal CERVICAL LENGTH (transabdominal: norm > 3.0cm): 3.0 cm BIOMETRY PRESENTATION: Vertex LIE: Longitudinal BPD: 6.25 cm 25 weeks / 3 days HC: 22.62 cm 24 weeks / 5 days AC: 19.75 cm 24 weeks / 3 days FL: 4.44 cm 24 weeks / 5 days ESTIMATED WEIGHT IN GRAMS: 710 grams ESTIMATED WEIGHT IN LBS/OZ: 1 lbs. 9 oz. WEIGHT PERCENTAGE BASED ON ESTABLISHED DATE: <2% % HC/AC: 1.15 Normal FL/AC: 22% Normal HEART RATE: 152 bpm RHYTHM: Normal ANATOMY SEEN (within normal limits): * Lateral Vent (< 1 cm) 0.78 cm Midline Falx Cavus Septi Pellucidi Outflow tracts: LVOT/RVOT Stomach Situs Nose / Lips Diaphragm Bladder Cord Insert Three Vessel Cord Longitudinal Spine Transverse Spine Arms (bilateral) Legs (bilateral) ANATOMY SEEN (does not appear within normal limits): All anatomy not listed below appears WNL ANATOMY NOT SEEN due to age * Cisterna Magna (< 1.1 cm) cm * Nuchal Fold (< 0.6 cm) cm * Cerebellum (varies with age) cm Choroid Plexus (bilateral) Four Chamber Heart Kidneys (bilateral) IMPRESSION: Single live intrauterine gestation ultrasound age 24 weeks 6 days. Additional information as describe d above. [facility], , 09/17/2024 4:06 PM
== END | disposition home or self-care (01) ==
LOC: RADUSWWP 14:48
DX: O09.30 Supervision of pregnancy with insufficient antenatal care, unspecified trimester (principal); Z3A.24 24 weeks gestation of pregnancy; Z87.891 Personal history of nicotine dependence; Z87.59 Personal history of other complications of pregnancy, childbirth and the puerperium
CPT/HCPCS: 76811